=== PATIENT | female | born 1985 ===

== ENCOUNTER 2017-12-31 17:55 | Emergency (ER) | payer OTHER ==
[2017-12-31 18:11] VITALS: BP 128/65; PULSE 79; RESP 16; O2SAT 99
[2017-12-31] MEDS ORDERED: cefTRIAXone (Rocephin) 1 gm Inj IVPB STA (18:28)
--- NOTE | 2017-12-31 18:31 | ED PDOC ---
HPI: Back Time Seen by Provider: 12/31/17 18:29 Chief Complaint (Nursing): Back Pain Chief Complaint (Provider): back pain History Per: Patient (32 y/o female here with right sided flank pain that began today. Has had dysuria/urinary frequency x few days and was seen at [facility] without any signs of uti/kidney stones. Was seen by pmd today and sent to ED for US for evaluation of abdominal pain. Notes fevers/chills today. Has had mild cough but neg flu swab yesterday.) Past Medical History Reviewed: Historical Data, Nursing Documentation, Vital Signs Vital Signs: Last Vital Signs Temp 98.4 F 12/31/17 18:07 Pulse 79 12/31/17 18:07 Resp 16 12/31/17 18:07 BP 128/65 12/31/17 18:07 Pulse Ox 99 12/31/17 18:07 - Surgical History Other surgeries: breast augmentation - Family History Family History: States: No Known Family Hx - Home Medications Home Medications: Ambulatory Orders Medication Instructions Recorded Ciprofloxacin HCl [Cipro] 500 mg PO Q12 #14 tablet 12/31/17 Naproxen 1 tab PO Q12 PRN #14 tab 12/31/17 Ondansetron [Zofran Odt] 4 mg PO Q8 PRN #10 tab.rapdis 12/31/17 Phenazopyridine [Pyridium] 200 mg PO Q12 PRN #6 tab 12/31/17 oxyCODONE/Acetaminophen [Percocet 1 ea PO Q6 PRN #8 tab 12/31/17 5/325 mg Tab] - Allergies Allergies/Adverse Reactions: Allergies Allergy/AdvReac Type Severity Reaction Status Date / Time No Known Allergies Allergy Verified 12/31/17 18:11 Review of Systems ROS Statement: Except As Marked, All Systems Reviewed And Found Negative Physical Exam - Reviewed Nursing Documentation Reviewed: Yes Vital Signs Reviewed: Yes - Physical Exam Appears: Positive for: Well, Non-toxic, No Acute Distress Head Exam: Positive for: ATRAUMATIC, NORMAL INSPECTION, NORMOCEPHALIC Skin: Positive for: Normal Color, Warm, DRY Eye Exam: Positive for: EOMI, Normal appearance, PERRL ENT: Positive for: Normal ENT Inspection Neck: Positive for: Normal, Painless ROM Cardiovascular/Chest: Positive for: Regular Rate, Rhythm Respiratory: Positive for: CNT, Normal Breath Sounds Gastrointestinal/Abdominal: Positive for: Normal Exam, Bowel Sounds, Soft Back: Positive for: Normal Inspection, R CVA Tenderness Extremity: Positive for: Normal ROM Neurologic/Psych: Positive for: Alert, Oriented - Laboratory Results Result Diagrams: 12/31/17 19:07 12/31/17 19:07 Urine POC: Negative Urine dip results: Positive for: Leukocyte Esterase, Blood, Nitrate - ECG O2 Sat by Pulse Oximetry: 99 - Progress ED Course And Treament: renal us: no hydronephrosis rocephin 1 gm iv x 1dose toradol 15 mg iv x 1 dose Disposition - Clinical Impression Clinical Impression: Pyelonephritis - Patient ED Disposition Is Patient to be Admitted: No - Disposition Disposition: Routine/Home Disposition Time: 20:11 Condition: FAIR Prescriptions: Ciprofloxacin HCl [Cipro] 500 mg PO Q12 #14 tablet Naproxen 1 tab PO Q12 PRN #14 tab PRN Reason: Pain, Moderate (4-7) Ondansetron [Zofran Odt] 4 mg PO Q8 PRN #10 tab.rapdis PRN Reason: Nausea/Vomiting oxyCODONE/Acetaminophen [Percocet 5/325 mg Tab] 1 ea PO Q6 PRN #8 tab PRN Reason: Pain, Severe (8-10) Phenazopyridine [Pyridium] 200 mg PO Q12 PRN #6 tab PRN Reason: Urinary Discomt Instructions: Acute Pyelonephritis (DC) Forms: [employer] ([place])
[2017-12-31 19:10] LABS: BASO # 0.1 K/uL (0.0-0.2); BASO % 0.8 % (0.0-2.0); EOS # 0.3 K/uL (0.0-0.7); EOS % 2.4 % (0.0-4.0); LYMPH # 1.3 K/uL (1.0-4.3); LYMPH % 10.6 % (20.0-40.0); MEAN CELL VOLUME 85.7 fl (81.0-99.0); MEAN CORPUSCULAR HEMOGLOBIN 28.3 pg (27.0-31.0); MEAN PLATELET VOLUME 8.3 fl (7.2-11.7); MONO # 0.6 K/uL (0.0-0.8); NEUT # 9.9 K/uL (1.8-7.0); NEUT % 81.2 % (50.0-75.0); NRBC % 0.1 % (0.0-0.0); RBC 4.25 Mil/uL (3.80-5.20); RED CELL DISTRIBUTION WIDTH 12.6 % (11.5-14.5); WHITE BLOOD COUNT 12.2 K/uL (4.8-10.8)
[2017-12-31 19:20] LABS: SQUAMOUS EPITHIAL 4 /hpf (0-5); URINE BACTERIA MANY (<OCC); URINE BILIRUBIN NEGATIVE (NEGATIVE); URINE BLOOD MODERATE (NEGATIVE); URINE CLARITY CLOUDY (Clear); URINE COLOR YELLOW (YELLOW); URINE GLUCOSE (UA) NEG (Normal); URINE LEUKOCYTE ESTERASE LARGE Leu/uL (Negative); URINE NITRATE NEGATIVE (NEGATIVE); URINE PROTEIN 30 mg/dL (NEGATIVE); URINE UROBILINOGEN 0.2-1.0 mg/dL (0.2-1.0)
[2017-12-31 19:22] LABS: ALB/GLOB RATIO 1.3 (1.0-2.1); ALBUMIN 3.9 g/dL (3.5-5.0); ALT/SGPT 26 U/L (9-52); AST/SGOT 18 U/L (14-36); BLOOD UREA NITROGEN 13 mg/dl (7-17); CALCIUM 9.3 mg/dL (8.4-10.2); GFR AFRICAN-AMERICAN > 60; GFR NON-AFRICAN AMERICAN > 60
[2017-12-31 20:37] VITALS: TEMP 98.6
--- NOTE | 2017-12-31 21:10 | US ---
EXAM: US Retroperitoneal Limited, Renal CLINICAL HISTORY: 32 years old, female; Pain; Abdominal pain; Flank; Other: Rt sided; Additional info: R/O hydronephrosis right sided TECHNIQUE: Real-time ultrasound of the retroperitoneum (limited) with image documentation. COMPARISON: No relevant prior studies available. FINDINGS: Right kidney: Normal echogenicity. No calculi. No mass. No hydronephrosis. Left kidney: Normal echogenicity. No calculi. No mass. No hydronephrosis. Bladder: Unremarkable. IMPRESSION: 1.No acute findings.
== END 2017-12-31 21:13 | disposition home or self-care (01) ==
LOC: H.ER 17:55
DX: N12 Tubulo-interstitial nephritis, not specified as acute or chronic (principal)
CPT/HCPCS: 76770; 80053; 81003; 85025; 87086; 87181; 87804; 96374; 99283; J0696; J1885